=== PATIENT | male | born 1955 | race Hispanic/Latino ===

== ENCOUNTER → 2018-07-31 | Outpatient (CLI) | payer BC ==
--- NOTE | 2018-07-31 17:30 | Diagnostic Imaging Report ---
EXAM: CT Chest WITHOUT contrast INDICATION: Smoker COMPARISON: None. TECHNIQUE: The Chest was scanned utilizing a multidetector helical scanner without the use of IV contrast. Coronal and sagittal reformations were obtained. IV CONTRAST: None COMPLICATIONS: None RADIATION DOSE: Total DLP: 240 mGy*cm Estimated effective dose: (DLP x 0.015 x size factor) mSv CTDIvol has been reviewed. It is below the limits set by the Radiation Protocol Committee (RPC). Appropriate CT dose reduction techniques were utilized. FINDINGS: Lines and Tubes: None. Lower Neck: No acute findings. Heart and Great Vessels: The aorta and main pulmonary artery measure 33 and 28 mm. respectively. No pericardial effusion. Mild three-vessel coronary artery vascular calcifications. Lymph Nodes: Small mediastinal lymph nodes, not enlarged by size criteria. The hilar regions are sub-optimally evaluated given lack of IV contrast. Lungs: No pneumothorax or pleural effusion. Trachea and central bronchi are unremarkable. Minimal centrilobular emphysematous changes present. 3 mm nodule right lower lobe series 3 image 69. Minimal linear opacities in the lung bases have the appearance of atelectasis. While lack of MIP images limits evaluation, questionable very subtle groundglass nodules are present in the dependent right upper lobe and right lower lobe. Upper abdomen: No acute findings. Bones and Soft Tissues: Minimal degenerative change. IMPRESSION: 1. Minimal centrilobular emphysematous changes with 3 mm nodule right lower lobe. One year follow-up. 2. Questionable very subtle groundglass nodules dependent right upper lobe and right lower lobe. Infectious/inflammatory process, to include RB ILD possible. Signed by: Dr. Mj Dahl MD on 07/31/2018 5:27 PM
== END ==
LOC: CT 16:36
PROVIDERS: ATTEND Family Medicine
DX: F17.200 Nicotine dependence, unspecified, uncomplicated (principal)
CPT/HCPCS: 71250